=== PATIENT | female | born 1980 | race Caucasian/White ===

== ENCOUNTER 2017-11-18 10:14 | Inpatient (IN) | payer MEDICAID ==
[~2017-11-18 10:14] MED LIST: OXYTOCIN 30 UNITS/LR 500 ML BAG IV
[2017-11-18] MEDS: LACTATED RINGER'S 1,000 ML IV ×2 (10:45→11:35)
[2017-11-18] MEDS ORDERED: MISOPROSTOL 200 MCG TAB PR ×2 (11:00→19:00)
[2017-11-18] MEDS ORDERED: METHYLERGONOVINE 0.2 MG INJ IM ×2 (11:00→19:00)
[2017-11-18] MEDS ORDERED: OXYTOCIN 30 UNITS/LR 500 ML IV ×2 (11:00→19:00)
[2017-11-18] MEDS ORDERED: CARBOPROST 250 MCG INJ IM ×2 (11:00→19:00)
[2017-11-18 11:01] LABS: ADD MAN DIFF? NO
[2017-11-18 11:07] LABS: WHITE BLOOD COUNT 8.9 10^3/ul (4.8-10.8)
[2017-11-18 11:07] LABS: BASOPHILS % 0.3 % (0.0-2.0); EOSINOPHILS # 0.1 10^3/ul (0.0-0.5); EOSINOPHILS % 0.8 % (0.0-7.0); HEMOGLOBIN 11.2 g/dl (12.0-16.0); LYMPHOCYTES # 2.3 10^3/ul (0.8-2.9); LYMPHOCYTES % 25.6 % (15.0-51.0); MEAN CORPUSCULAR HEMOGLOBIN 29.3 pg (29.0-33.0); MEAN CORPUSCULAR HGB CONC 33.9 g/dl (32.0-37.0); MEAN CORPUSCULAR VOLUME 86.4 fl (82.0-101.0); MEAN PLATELET VOLUME 9.3 fl (7.4-10.4); MONOCYTE # 0.5 10^3/ul (0.3-0.9); MONOCYTES % 5.4 % (0.0-11.0); NEUTROPHILS % 67.5 % (39.0-77.0); PLATELET COUNT 368 10^3/UL (140-415); RED BLOOD COUNT 3.82 10^6/ul (4.20-5.40); RED CELL DISTRIBUTION WIDTH 14.6 % (11.5-14.5)
[2017-11-18 11:29] LABS: INR 0.99; PROTIME 13.2 Sec (11.9-14.9)
[2017-11-18 11:30] LABS: PARTIAL THROMBOPLASTIN TIME 26.9 Sec (25.0-35.0)
[2017-11-18 12:03] LABS: HEPATITIS B SURFACE ANTIGEN NEGATIVE (NEGATIVE)
[2017-11-18] MEDS: CEFAZOLIN 2 GM/50 ML (PMX) 50 ML IV ×2 (12:40→13:14)
[2017-11-18] MEDS ORDERED: morphine SULFATE/PF (10 MG/10 ML) INJ (12:41)
[2017-11-18] MEDS ORDERED: OXYTOCIN 10 UNIT INJ ×2 (12:42→13:30)
[2017-11-18] MEDS ORDERED: BUPIVACAINE 0.75%/DEXT (SPINAL) 2 ML INJ (12:42)
[2017-11-18] MEDS ORDERED: PHENYLephrine (100 MCG/ML) 5ML SYG (12:42)
[2017-11-18] MEDS ORDERED: ONDANSETRON 4 MG INJ (12:42)
[2017-11-18] MEDS ORDERED: MIDAZOLAM 1 MG/ML 2 ML INJ ×2 (12:55→13:25)
[2017-11-18] MEDS ORDERED: PHENYLephrine 10 MG INJ (13:12)
[2017-11-18] MEDS: OXYTOCIN 30 UNITS/LR 500 ML IV ×2 (14:25→18:56)
[2017-11-18] MEDS ORDERED: NALOXONE (0.4 MG/ML) INJ IV (14:30)
[2017-11-18] MEDS ORDERED: morphine 2 MG INJ IV (14:30)
[2017-11-18] MEDS ORDERED: DIPHENHYDRAMINE 50 MG INJ IV (14:30)
[2017-11-18 14:58] LABS: RAPID PLASMA REAGIN NONREACTIVE (NR)
[2017-11-18] MEDS: ONDANSETRON 4 MG INJ IV (15:46)
[2017-11-18] MEDS: KETOROLAC 30 MG INJ IV ×2 (16:11→21:54)
[2017-11-18] MEDS ORDERED: LANOLIN 7 GM TUBE TOP (19:00)
[2017-11-18] MEDS ORDERED: HYDROCODONE/APAP (5/325) TAB PO ×2 (19:00)
[2017-11-18] MEDS ORDERED: OXYCODONE/ACETAMINOPHEN (5/325) TAB PO ×2 (19:00)
[2017-11-18] MEDS: SENNA/DOCUSATE NA (8.6MG/50MG) TAB PO (21:00)
[2017-11-18] MEDS: GUAIFENESIN/DM 5ML CUP PO (21:53)
[2017-11-18] MEDS: CEFAZOLIN 1 GM/50 ML (PMX) 50 ML IVPB (21:54)
[2017-11-19] MEDS: GUAIFENESIN/DM 5ML CUP PO ×4 (02:18→21:49)
[2017-11-19] MEDS: KETOROLAC 30 MG INJ IV ×2 (04:03→09:11)
[2017-11-19] MEDS ORDERED: CARBOPROST 250 MCG INJ IM (07:00)
[2017-11-19] MEDS ORDERED: METHYLERGONOVINE 0.2 MG INJ IM (07:00)
[2017-11-19] MEDS ORDERED: OXYTOCIN 30 UNITS/LR 500 ML IV (07:00)
[2017-11-19] MEDS ORDERED: ONDANSETRON 4 MG INJ IV (07:00)
[2017-11-19] MEDS ORDERED: ZOLPIDEM 5 MG TAB PO (07:00)
[2017-11-19] MEDS ORDERED: MISOPROSTOL 200 MCG TAB PR (07:00)
[2017-11-19] MEDS ORDERED: DIPHENHYDRAMINE 50 MG INJ IV (07:00)
[2017-11-19 08:57] LABS: ADD MAN DIFF? NO
[2017-11-19 09:02] LABS: BASOPHILS % 0.2 % (0.0-2.0); EOSINOPHILS # 0.1 10^3/ul (0.0-0.5); EOSINOPHILS % 0.4 % (0.0-7.0); HEMATOCRIT 29.4 % (37.0-47.0); HEMOGLOBIN 9.9 g/dl (12.0-16.0); LYMPHOCYTES # 2.4 10^3/ul (0.8-2.9); LYMPHOCYTES % 20.2 % (15.0-51.0); MEAN CORPUSCULAR HEMOGLOBIN 28.7 pg (29.0-33.0); MEAN CORPUSCULAR HGB CONC 33.7 g/dl (32.0-37.0); MEAN CORPUSCULAR VOLUME 85.2 fl (82.0-101.0); MEAN PLATELET VOLUME 9.1 fl (7.4-10.4); MONOCYTE # 0.9 10^3/ul (0.3-0.9); MONOCYTES % 7.7 % (0.0-11.0); NEUTROPHIL # 8.5 10^3/ul (1.6-7.5); NEUTROPHILS % 71.1 % (39.0-77.0); PLATELET COUNT 323 10^3/UL (140-415); RED BLOOD COUNT 3.45 10^6/ul (4.20-5.40); RED CELL DISTRIBUTION WIDTH 14.6 % (11.5-14.5)
[2017-11-19] MEDS: SENNA/DOCUSATE NA (8.6MG/50MG) TAB PO ×2 (09:11→21:49)
[2017-11-19] MEDS: LACTATED RINGER'S 1,000 ML IV ×3 (09:12→22:43)
[2017-11-19] MEDS: OXYCODONE/ACETAMINOPHEN (5/325) TAB PO ×2 (14:36→20:02)
[2017-11-19] MEDS ORDERED: IBUPROFEN 600 MG TAB PO (18:00)
[2017-11-19] MEDS: IBUPROFEN 600 MG TAB PO ×2 (18:06→23:57)
[2017-11-20] MEDS: GUAIFENESIN/DM 5ML CUP PO ×4 (02:05→22:04)
[2017-11-20] MEDS: OXYCODONE/ACETAMINOPHEN (5/325) TAB PO ×5 (02:06→22:05)
[2017-11-20] MEDS: IBUPROFEN 600 MG TAB PO ×3 (06:19→17:08)
[2017-11-20] MEDS: SENNA/DOCUSATE NA (8.6MG/50MG) TAB PO ×2 (08:39→21:09)
[2017-11-20] MEDS: LANOLIN 7 GM TUBE TOP (17:11)
[2017-11-21] MEDS: IBUPROFEN 600 MG TAB PO ×3 (00:11→12:22)
[2017-11-21] MEDS: GUAIFENESIN/DM 5ML CUP PO ×3 (02:01→10:26)
[2017-11-21] MEDS: OXYCODONE/ACETAMINOPHEN (5/325) TAB PO ×3 (02:01→13:35)
[2017-11-21] MEDS ORDERED: DIPHTH/TET/ACEL PERTUSS (ADULT) 0.5 ML VIAL IM* (09:00)
[2017-11-21] MEDS: SENNA/DOCUSATE NA (8.6MG/50MG) TAB PO (09:19)
[2017-11-21] MEDS: DIPHTH/TET/ACEL PERTUSS (ADULT) 0.5 ML VIAL IM* (09:55)
== END 2017-11-21 13:50 | disposition home or self-care (01) | DRG 765 ==
LOC: L-D 10:14 → PP1 17:25
PROVIDERS: Obstetrics & Gynecology
PROC: 10D00Z1 Extraction of Products of Conception, Low, Open Approach (ICD-10-PCS; principal; 2017-11-18 12:30)
PROC: 4A1HXCZ Monitoring of Products of Conception, Cardiac Rate, External Approach (ICD-10-PCS; 2017-11-18 12:30)
DX: O34.219 Maternal care for unspecified type scar from previous cesarean delivery (principal); Z68.41 Body mass index [BMI] 40.0-44.9, adult; Z3A.39 39 weeks gestation of pregnancy; Z37.0 Single live birth; O99.214 Obesity complicating childbirth; E66.01 Morbid (severe) obesity due to excess calories
CPT/HCPCS: 85025; 85610; 85730; 86592; 86850; 86900; 86901; 87340; 93971; 99464